=== PATIENT | male | born 1965 | race American Indian/Alaskan Native ===

== ENCOUNTER 2016-08-25 12:47 | Outpatient (CLI) | payer OTHER ==
--- NOTE | 2016-08-25 13:22 | XRay Report ---
RIGHT FOOT: The bony architecture is intact. Bony alignment is normal. No soft tissue abnormalities are seen. The joint spaces appear preserved. IMPRESSION: Normal right foot.
== END 2016-08-25 12:48 | disposition home or self-care (01) ==
LOC: SPVIMAG 12:47
DX: M79.671 Pain in right foot (principal)

== ENCOUNTER 2017-09-15 14:17 | Outpatient (CLI) | payer OTHER ==
--- NOTE | 2017-09-15 15:48 | XRay Report ---
LUMBAR SPINE RADIOGRAPHS: INDICATION: Back pain. COMPARISON: None similar. FINDINGS: AP and lateral lumbar spine radiographs demonstrate preserved vertebral body stature, alignment and disc heights. Mid to lower lumbar facet arthropathy. Nonobstructive bowel gas pattern. Normal bilateral SI joints. CONCLUSION: Mid to lower lumbar facet arthropathy suspected without acute radiographic abnormality. Thank you for the opportunity to participate in this patient's care.
--- NOTE | 2017-09-15 15:52 | XRay Report ---
CERVICAL SPINE RADIOGRAPHS INDICATION: Neck pain. COMPARISON: None similar. FINDINGS: AP, lateral, open mouth and swimmer's views of the cervical spine, 5 images, demonstrate grossly unremarkable visualized dens and symmetric lateral masses, though partly obscured due to overlying skull. Clear imaged lung apices. Intact craniocervical articulation on the lateral view with normal predental space, prevertebral soft tissues and airway. Cervical spine straightening, possibly positional versus spasm with C5-C6 moderate disc narrowing and degenerative spurring. Mild C3 degenerative spurring anteroinferiorly as well. CONCLUSION: Cervical spine straightening with multilevel degenerative changes, greatest at C5-C6, as described. Please correlate. Thank you for the opportunity to participate in this patient's care.
== END 2017-09-15 14:18 | disposition home or self-care (01) ==
LOC: SPVIMAG 14:17
DX: M47.892 Other spondylosis, cervical region (principal); M54.5 Low back pain
CPT/HCPCS: 72040; 72100

== ENCOUNTER 2019-01-16 11:12 | Outpatient (CLI) | payer OTHER ==
--- NOTE | 2019-01-16 12:09 | XRay Report ---
X-RAY RIGHT ANKLE THREE VIEWS: 01/16/19 11:12:00 CLINICAL: Right ankle pain. FINDINGS: The ankle mortise is intact. No fracture or dislocation. Mild medial and lateral soft tissue swelling . No soft tissue air or foreign body. A moderate size Achilles enthesophyte. IMPRESSION: Nonspecific soft tissue swelling.Achilles enthesopathy.
== END 2019-01-16 11:13 | disposition home or self-care (01) ==
LOC: SPVIMAG 11:12
PROVIDERS: ATTEND Family Medicine
DX: R22.41 Localized swelling, mass and lump, right lower limb (principal)